=== PATIENT | female | born 1950 | race Caucasian/White ===

== ENCOUNTER 2023-07-01 14:36 | Emergency (ER) | payer MEDICARE, BC ==
[2023-07-01] MEDS ORDERED: Acetaminophen/HYDROcodone 325-5 MG Tab PO ONE (14:37)
[2023-07-01] MEDS ORDERED: Ondansetron 4 MG Tab.DIS PO ONE (14:59)
[2023-07-01] MEDS ORDERED: Morphine 10 MG/ML SDV IM ONE (14:59)
== END 2023-07-01 16:55 | disposition home or self-care (01) ==
LOC: FB.ED 14:36
DX: S42.295A Other nondisplaced fracture of upper end of left humerus, initial encounter for closed fracture (principal); S80.01XA Contusion of right knee, initial encounter; W01.10XA Fall on same level from slipping, tripping and stumbling with subsequent striking against unspecified object, initial encounter
CPT/HCPCS: 73030; 73562; 96372; 99283; A9270; J2270; Q0162